=== PATIENT | male | born 2000 | race Caucasian/White ===

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

== ENCOUNTER 2022-10-16 21:45 | Emergency (ER) | payer MEDICAID ==
[~2022-10-16] VITALS: Ht 180.3 cm; Wt 59.1 kg
[~2022-10-16 21:45] MED LIST: LIDO700A32 TD
[2022-10-16 21:59] VITALS: BP 162/96
== END 2022-10-16 22:36 ==
LOC: ER 21:46
CPT/HCPCS: 99283

== ENCOUNTER 2024-11-21 09:09 | Emergency (ER) | payer MEDICAID ==
[~2024-11-21] VITALS: Ht 180.3 cm; Wt 65.1 kg
[2024-11-21 09:23] VITALS: BP 159/96; PULSE 78; RESP 16; TEMP 98; O2SAT 98
--- NOTE | 2024-11-21 09:36 | Physician Documentation ---
History of Present Illness ~ Chief Complaint: Arm Pain Stated Complaint: R ARM PAIN Time Seen by MD: 09:28 HPI Patient is seen today with complaints of pain of his right arm/distal forearm on the radial aspect. Patient denies any specific injury. Patient states he works hard regularly and feels he may have over worked it. Patient states he has pain at the extremes of supination as well as active wrists extension. Patient has no other concern or complaint at this time. Tetanus within 5 years: Yes Medication Reconciliation Allergies: Coded Allergies: No Known Allergies (Unverified , 10/16/22) Scheduled Lidocaine (Lidoderm), 1 PATCH TD nightly Past Medical History Past Medical History: No Pertinent History Past Surgical History: noncontributory Alcohol Use: None Drug Use: none Lives In: Home Review of Systems Constitutional: Denies: chills, fever, weakness Eyes: Denies: pain, blurred vision ENT: Denies: ear pain, nose pain, throat pain, mouth pain Respiratory: Denies: cough, shortness of breath Cardiovascular: Denies: chest pain, palpitations Gastrointestinal: Denies: abdominal pain, nausea, vomiting Genitourinary: Denies: burning, dysuria Male Genitalia: Denies: penile discharge, testicular pain Neurological: Denies: headache, dizziness Musculoskeletal: Denies: pain, swelling Integumentary: Denies: rash, lesions Allergic/Immunologic: Denies: hives, itching Hematologic/Lymphatic: Denies: no symptoms reported Psychiatric: Denies: depression, anxiety Physical Exam Vital Signs: Temperature: 98.0, Source: Temporal, Heart Rate: 78, Respiratory Rate: 16, BP: 159/96, Pulse Oximetry: 98, Weight: 65.100 Oxygen Flow Rate: 0 Physical Exam General: Awake and Alert, no acute distress. HEENT: Conjunctiva pink, Sclera clear, Mucus Membranes moist. Neck: Supple without masses and tenderness. Resp: Unlabored. Lungs clear to auscultation bilaterally. Heart: Regular Rate and rhythm, normal S1 and S2 without murmur, rub or gallop. Musculoskeletal: Patient on exam has significant tenderness to palpation of dorsum/radial aspect of the distal radius. Patient has a negative Tiffani test of the right wrist and no tenderness to palpation of the 1st extensor compartment of the right wrist. Patient is neurovascularly intact distally. Motor function is intact distally. Patient has pain elicited with active extension of the right wrist as well as active pronation. Patient has no tenderness to palpation of any bony prominences of the right upper extremity. There is no tenderness to palpation in the area of the anatomical snuffbox. Extremities: No cyanosis,clubbing or edema. Skin: Warm and Dry. Progress Results/Orders Results/Orders Vital Signs 11/21/24 09:23 Temp 98.0 Pulse 78 Resp 16 B/P (MAP) 159/96 Pulse Ox 98 O2 Flow Rate 0 Medical Decision Making Findings Patient is seen today with complaints of pain of his right arm/distal forearm on the radial aspect. Patient denies any specific injury. Patient states he works hard regularly and feels he may have over worked it. Patient states he has pain at the extremes of supination as well as active wrists extension. Patient has no other concern or complaint at this time. Patient will continue rest, ice, compression, elevation 20 minutes on 20 minutes off as well as activity modification and follow up with primary care in 2-5 days if no better for referral to physical therapy. Patient will continue anti- inflammatory such as ibuprofen or naproxen in combination with Tylenol for pain relief three to 4 times a day as needed. Return to ED with any worsening, concerning or changing symptoms. Shared decision-making utilized today. Departure Disposition: 01 HOME / SELF CARE / HOMELESS Impression: Primary Impression: Tendinitis Condition: Stable Discharge Instructions: Tendinitis Additional Instructions: Patient will continue rest, ice, compression, elevation 20 minutes on 20 minutes off as well as activity modification and follow up with primary care in 2-5 days if no better for referral to physical therapy. Patient will continue anti- inflammatory such as ibuprofen or naproxen in combination with Tylenol for pain relief three to 4 times a day as needed. Return to ED with any worsening, con cerning or changing symptoms. Shared decision-making utilized today. Referrals: NO PRIMARY CARE PROVIDER (PCP) Signature Scribe Signature: No scribe Attestation: No scribe CHELE BALBUENA November 21, 2024 09:36
== END 2024-11-21 09:59 | disposition home or self-care (01) ==
LOC: ER 09:10
DX: M77.9 Enthesopathy, unspecified (principal); Z79.899 Other long term (current) drug therapy
CPT/HCPCS: 99282

== ENCOUNTER 2024-11-27 14:43 | Emergency (ER) | payer MEDICAID ==
[~2024-11-27] VITALS: Ht 180.3 cm; Wt 67.2 kg
--- NOTE | 2024-11-27 15:39 | RADIOLOGY REPORT ---
EXAM: DI FOREARM,INCL.ONE JOINT CLINICAL INDICATION: ARM PAIN TECHNIQUE: DI FOREARM,INCL.ONE JOINT, 2v Comparison: None FINDINGS/IMPRESSION: There is no evidence of acute fracture or dislocation. The visualized joint space is well maintained. The alignment is anatomical. There is no radiopaque foreign body.
--- NOTE | 2024-11-27 16:14 | Physician Documentation ---
History of Present Illness ~ Chief Complaint: Arm Pain Stated Complaint: R ARM PAIN Time Seen by MD: 15:48 HPI This is a 24-year-old male who presents with persistent right forearm pain worse when flexing his wrist were lifting heavy objects, patient was seen approximately one-week prior for this and diagnosed with tendonitis of the area. Patient reports that the pain has decreased though is still limiting his ability to work. Patient is requesting two days work note. Reports no other acute symptoms or concerns. Tetanus within 5 years: Yes Medication Reconciliation Allergies: Coded Allergies: No Known Allergies (Unverified , 11/27/24) Scheduled Lidocaine (Lidoderm), 1 PATCH TD nightly Past Medical History Past Medical History: No Pertinent History Past Surgical History: noncontributory Alcohol Use: None Drug Use: none Lives In: Home Review of Systems ROS Forearm pain as stated above in the HPI, otherwise all systems are reviewed and negative. Physical Exam Vital Signs: Temperature: 98.7, Source: Oral, Heart Rate: 74, Respiratory Rate: 15, BP: 128/76, Pulse Oximetry: 99, Weight: 67.200 Oxygen Flow Rate: 0 Physical Exam VITALS: Reviewed and as above. GENERAL: Alert, nontoxic appearing, no apparent distress. RESPIRATORY: No increased work of breathing, no respiratory distress, speaking in full clear sentences MUSCULOSKELETAL: Minimal tenderness to palpation of the dorsal aspect of right forearm, wrist full range of motion, arm is neurovascularly intact with brisk capillary refill, sensation intact, and strong radial pulse, ecchymosis, swelling, or erythema to the area. Progress Results/Orders Results/Orders Orders - [facility] QUINTAN[facility]A [facility] [employer] [facility] Orders (11/27/24 16:07) Vital Signs 11/27/24 11/27/24 11/27/24 14:52 16:05 16:45 Temp 98.7 98.7 Pulse 70 74 102 Resp 16 15 16 B/P (MAP) 131/81 128/76 (93) 142/88 Pulse Ox 99 99 99 O2 Flow Rate 0 0 EKG/XRAY/CT/US/VASC/MRI Bone/Soft Tissue X-Ray (Ext.) : Additional Comment EXAM: DI FOREARM,INCL.ONE JOINT CLINICAL INDICATION: ARM PAIN TECHNIQUE: DI FOREARM,INCL.ONE JOINT, 2v Comparison: None FINDINGS/IMPRESSION: There is no evidence of acute fracture or dislocation. The visualized joint space is well maintained. The alignment is anatomical. There is no radiopaque foreign body. Electronically Signed by:MO HUERTA MD Date & Time: 11/27/24 1536 Dictated by: MO HUERTA MD Dictation date and time: 11/27/24 1515 I have reviewed and agree with the radiology report. I have reviewed and interpreted the imaging as: No fracture or dislocation Medical Decision Making Findings This 24-year-old male presented with persistent though improving right forearm pain worse when lifting heavy objects and flexing his wrist, patient had been previously diagnosed with tendonitis which is consistent with my exam as there was no fracture or dislocation of the area no swelling to the area, and only mild tenderness to palpation. Patient provided a wrist splint to provide additional support to the area while lifting objects. Remainder of physical exam was benign including arm and hand neurovascularly intact, vital signs stable and patient is appropriate for outpatient follow up. Patient provided follow up instructions, home care instructions and return to care precautions which he verbalized understanding of. Wrist Diff Dx:Considerations: Include: Abrasion, Arthritis, DJD, Gout, Co ntusion, Fracture-carpal, Fracture-radius, Fracture-ulna, Ganglion, Laceration, Neurovascular injury, Strain Departure Disposition: 01 HOME / SELF CARE / HOMELESS Impression: Primary Impression: Right forearm pain Condition: Improved Discharge Instructions: RICE Therapy for Routine Care of Injuries Additional Instructions: Please wear the wrist brace for comfort, you will need to follow up with the primary care provider for further management if this pain persists. Please see the attached home care instructions for rest, ice, compression, and elevation strategy. You may use ibuprofen and or Tylenol as needed for pain as directed by the [id number] packaging. Please follow up with your primary care provider in the next few days. Please return to the emergency department for any new or worsening concerning symptoms. Departure Forms: Excuse form Work or School Excused From: Work Excuse beginning now through the following date: Nov 29, 2024 Referrals: NO PRIMARY CARE PROVIDER (PCP) Education Educated: Patient Educated regarding: diagnosis, treatment, prognosis, need for follow up Signature Scribe Signature: No scribe Attestation: The note accurately reflects work and decisions made by me.TONE Reyes 11/28/24 03:48 GABO QUINTANILLA Nov 27, 2024 16:14
[2024-11-27 16:45] VITALS: BP 142/88; PULSE 102; RESP 16; TEMP 98.7; O2SAT 99
== END 2024-11-27 16:47 | disposition home or self-care (01) ==
LOC: ER 14:43
DX: M79.631 Pain in right forearm (principal)
CPT/HCPCS: 29125; 73090; 99283

== ENCOUNTER 2025-05-31 13:24 | Emergency (ER) | payer MEDICAID, OTHER ==
[~2025-05-31] VITALS: Ht 177.8 cm; Wt 65.0 kg
[~2025-05-31 13:24] MED LIST changes: +LIDO-52 TD; -LIDO700A32 TD
--- NOTE | 2025-05-31 13:27 | Physician Documentation ---
History of Present Illness ~ Stated Complaint: BACK PAIN Time Seen by MD: 13:39 [facility] 25 year old male presents to the emergency department for acute low back pain. Reports that he was vomiting yesterday due to the severity of the pain. Pain is worse with twisting, bending. Denies chills or fever. No known trauma. Used Ibuprofen and acetaminophen with minimal alleviation of pain. No incontinence or groin numbness. No urinary symptoms. History of cancer, IV drug use, tuberculosis, or recent trauma. Medication Reconciliation Allergies: Coded Allergies: No Known Allergies (Unverified , 05/31/25) Scheduled Lidocaine (Lidoderm), 1 PATCH TD nightly Past Medical History Past Medical History: No Pertinent History Past Surgical History: noncontributory Alcohol Use: None Drug Use: none Lives In: Home Review of Systems ROS As stated above in the HPI, otherwise all systems are reviewed and negative. Physical Exam Physical Exam Physical Exam VITALS: Reviewed and as above. GENERAL: Alert, nontoxic appearing, no apparent distress. RESPIRATORY: No increased work of breathing, no respiratory distress, speaking in full clear sentences BACK: Left lumbar tenderness and tightness as compared to right lumbar, no central spinal tenderness, no step-offs, no crepitus NEURO: Normal gait, moving all limbs equally Progress Results/Orders Results/Orders Vital Signs 05/31/25 13:33 Temp 98.6 Pulse 72 Resp 15 B/P (MAP) 134/73 Pulse Ox 98 Medical Decision Making Additional information obtaine: old records Findings Last visit 11/27/24 for forearm pain This is an otherwise healthy, well appearing 25-year-old male presenting with left lumbar back pain worse with twisting and described as cramping and spasming. Patients does not have any high-risk features on history no recent trauma, IVDA, cancer, significant weight loss or history of TB, and the patient has a normal neurologic exam without fever, severe or progressive neurologic deficits, new or worsening urinary retention, urinary/stool incontinence or decreased perineal sensation; therefore imaging was not indicated in the ED. I doubt spinal fracture, epidural hematoma, epidural abscess, unstable spinal pathology, emergent renal or aortic pathology, or spinal cord compression. Upon discharge, the patients pain was controlled, and the patient was ambulatory without a risk of falling. Return precautions were discussed including worsening pain, new/worsening weakness/numbness, difficulty urinating, or incontinence. Patient provided home care instructions and follow up instructions which he verbalized understanding of. Differential Dx:Considerations: AAA, Aortic dissection, Appendicitis, Bowel obstruction, Cholelithiasis, Cholangitis, DJD, Fracture, Hepatitis, HNP, Musculoskeletal pain, Pancreatitis, Pyelonephritis, Strain, Urinary obstruction, Urolithiasis, Ovarian torsion, Renal infarction, Urinary tract infection Departure Time of Disposition: 13:54 Disposition: 01 HOME / SELF CARE / HOMELESS Impression: Primary Impression: Low back pain Qualified Codes: M54.50 - Low back pain, unspecified Condition: Improved Discharge Instructions: Back Exercises, Acute Back Pain, Adult Additional Instructions: Please see the attached home care instructions and back exercises, I recommend following up with the primary care provider as you may benefit from referral for physical therapy which I am unable to provide from the emergency department. Please use the prescribed medications as directed, do not drink alcohol, drive, operate heavy machinery, or combine the prescribed cyclobenzaprine with other medications that cause drowsiness. Please follow up with your primary care provider in the next few days. Please return to the emergency department for any new or worsening concerning symptoms. You received a shot of Toradol in the emergency department, do not use ibuprofen, naproxen, or other medications labeled as NSAIDs for the next 10 hours. Referrals: NO PRIMARY CARE PROVIDER (PCP) Prescriptions Lidocaine (Lidoderm) 5 % Adh..patch 1 PATCH TOP DAILY for 10 Days, #30 PATCH 0 Refills may wear up to 12 hours Prov: GABO QUINTANILLAP 05/31/25 Ibuprofen (Ibuprofen) 800 Mg Tablet 1 TAB PO Q8H for pain for 10 Days, #30 TAB 0 Refills Prov: GABO QUINTANILLAP 05/31/25 Cyclobenzaprine HCl (Cyclobenzaprine HCl) 10 Mg Tablet 1 TAB PO Q8H for muscle spasms for 10 Days, #30 TAB Prov: GABO QUINTANILLA [facility] 05/31/25 Education Educated: Patient Educated regarding: diagnosis, treatment, prognosis, need for follow up Signature Scribe Signature: x Attestation: The note accurately reflects work and decisions made by me.Vijaya Barber NP 05/31/25 13:37 VIJAYA MICHEL NP May 31, 2025 13:27 GABO QUINTANILLAP May 31, 2025 13:52
[2025-05-31 13:33] VITALS: TEMP 98.6
[2025-05-31] MEDS ORDERED: IBUP-1986 PO (13:54)
[2025-05-31] MEDS ORDERED: CYCL-394 PO (13:54)
[2025-05-31] MEDS ORDERED: LIDO-52 TOP (13:54)
[2025-05-31 14:10] VITALS: BP 134/73; PULSE 74; O2SAT 94
[2025-05-31 14:14] VITALS: RESP 16
[2025-05-31] MEDS: ketorolac trometh 15mg/ml vial 15 MG/ML ML IM ONE (14:14)
== END 2025-05-31 14:19 | disposition home or self-care (01) ==
LOC: ER 13:24
DX: M54.50 Low back pain, unspecified (principal); R11.10 Vomiting, unspecified; Z79.899 Other long term (current) drug therapy
CPT/HCPCS: 96372; 99283; J1885